=== PATIENT | male | born 1995 | race Two or more races ===

== ENCOUNTER 2022-06-02 07:05 | Day surgery (SDC) | payer MEDICAID ==
[2022-05-30 14:57] LABS: Urine WBC None Seen /hpf (0 - 3)
[2022-05-30 15:06] LABS: Basophils # (auto) 0.1 10 ^3/uL (0-0.2); Basophils % (auto) 0.5 % (0.0-2.0); Eosinophils # (auto) 0.1 10 ^3/uL (0-0.8); Eosinophils % (auto) 1.4 % (0.0-7.0); Hematocrit 46.9 % (41.0-53.0); Hemoglobin 15.4 g/dL (13.5-17.5); Lymphocytes # (auto) 1.7 10 ^3/uL (0.4-5.4); Lymphocytes % (auto) 16.1 % (10.0-50.0); Mean Corpuscular Hemoglobin 27.7 pg (28.0-32.0); Mean Corpuscular Hgb Conc. 32.7 g/dL (32.0-36.0); Mean Corpuscular Volume 84.6 fL (80.0-100.0); Monocytes # (auto) 0.7 10 ^3/uL (0-1.3); Monocytes % (auto) 6.3 % (0.0-12.0); Neutrophils % (auto) 75.7 % (37.0-80.0); Nucleated Red Blood Cells % 0.3 %; Red Blood Cells 5.55 10^6/uL (4.5-5.90); Red Cell Distribution Width 13.4 % (11.8-14.3); White Blood Cell 10.6 10^3/uL (4.4-10.8)
[2022-05-30 15:12] LABS: Urine Bacteria NONE SEEN /hpf (None Seen); Urine Blood Negative /uL (Negative); Urine Specific Gravity 1.014 (1.001-1.035)
[2022-05-30 15:37] LABS: Potassium 3.9 mmol/L (3.5-5.1)
[2022-05-30 15:43] LABS: INR 0.99 (0.9-1.15); Partial Thromboplastin Time 28.3 sec (24.6-33.4)
[2022-05-30 15:50] LABS: Albumin 4.4 g/dL (3.4-5.0); BUN/Creatinine Ratio 13.8; Bilirubin, Total 2.6 mg/dL (0.2-1.0); Calcium 9.7 mg/dL (8.5-10.1); Total Protein 7.4 g/dL (6.4-8.2)
[~2022-06-02] VITALS: Ht 167.6 cm; Wt 74.8 kg
[~2022-06-02 07:05] MED LIST: BECL80AE11 IN
[2022-06-02] MEDS ORDERED: ceFAZolin 1GM/50ML 100 ML IV ONE (08:05)
[2022-06-02] MEDS ORDERED: fentaNYL CITRATE 100 MCG/2 ML VL ONE (08:43)
[2022-06-02] MEDS ORDERED: MIDAZOLAM HCL 2MG/2ML 2ml VIAL (1mg/ml) ONE (08:43)
[2022-06-02] MEDS ORDERED: HYDROmorphone HCL 2 MG/ML VL/or syr IV PRN (08:45)
[2022-06-02] MEDS ORDERED: ONDANSETRON HCL 4 MG/2 ML VIAL IV PRN (08:45)
[2022-06-02] MEDS ORDERED: LIDOCAINE 1%-Mpf/Epinephrine 1:200,000 ONE (08:59)
[2022-06-02] MEDS ORDERED: BACITRACIN TOP OINT 1 UD PKG TOP ONE (08:59)
[2022-06-02] MEDS ORDERED: PROPOFOL 10 MG/ML 20 ML IV ONE (09:24)
[2022-06-02 10:00] VITALS: BP 119/70
== END 2022-06-02 10:08 | disposition home or self-care (01) ==
LOC: SUR 07:05
PROVIDERS: ATTEND Urology
DX: Z30.9 Encounter for contraceptive management, unspecified (principal); J45.909 Unspecified asthma, uncomplicated; Z87.891 Personal history of nicotine dependence; Z20.822 Contact with and (suspected) exposure to COVID-19
CPT/HCPCS: 36415; 55250; 80053; 81001; 85025; 85610; 85730; 86850; 86900; 86901; J0690; J2001; J2250; J2704; J3010; U0003